=== PATIENT | female | born 1950 | race Caucasian/White ===

== ENCOUNTER 2023-03-19 13:28 | Emergency (ER) | payer OTHER ==
--- OUTSIDE RECORDS SUMMARY | 2023-03-19 13:30 | XMS REPORT | Continuity of Care Document ---
:1950 Author Organization [facility] t Address [address] [place] [id number] Care Team Providers Name Role Phone Unavailable Unavailable Unavailable Problems This patient has no known problems. Allergies, Adverse Reactions, Alerts This patient has no known allergies or adverse reactions. Medications This patient has no known medications. Procedures This patient has no known procedures. Results This patient has no known results.
[2023-03-19] MEDS ORDERED: ACETAMINOPHEN 325 MG TABLET ONE (14:02)
--- NOTE | 2023-03-19 14:45 | RAD REPORT ---
EXAM DESCRIPTION: CT - [id number] - 03/19/2023 2:16 pm CLINICAL HISTORY: head injury;Headache COMPARISON: No comparisons TECHNIQUE: Axial thin cut noncontrast CT images of the head were obtained. Axial thin cut noncontrast CT images of the cervical spine were obtained. Multiplanar reformatted images were generated and reviewed. All CT scans are performed using dose optimization technique as appropriate and may include automated exposure control or mA/KV adjustment according to patient size. FINDINGS: CT HEAD WITHOUT CONTRAST: No acute hemorrhage, hydrocephalus or extra-axial collection is identified.Nonspecific symmetric deyanira ventricular and deep white matter hypodensities, most suggestive of chronic small vessel ischemic mei nges. No areas of brain edema or midline shift. The paranasal sinuses and mastoids are clear.The calvarium is intact. CT CERVICAL SPINE WITHOUT CONTRAST: No fracture or subluxation. Mild degenerative changes at C1-C2, as well as scattered mild degenerativ e changes including mild to moderate disc height loss at C5-6 and C6-7 with uncovertebral joint spurr ing most pronounced at those 2 levels, contributing to mild bilateral neural foraminal narrowing at C 5-6. No prevertebral soft tissues swelling is identified. IMPRESSION: No acute traumatic intracranial or cervical spine findings. Nonspecific deep white matter hypodensities as above, most suggestive of chronic small vessel ischemi c changes. Mild cervical spine degenerative changes as above.
--- NOTE | 2023-03-19 15:52 | EDPHYS ---
Physician Documentation [facility] Name: Nataliya Singh Age: 72 yrs Sex: Female : 1950 Arrival Date: 03/19/2023 Time: 13:28 Bed 9 Private MD: ED Physician Donta Burroughs HPI: 03/19 14:00 This 72 yrs old Female presents to ER via Ambulatory with complaints of Fall Injury, cp Head Injury-Adult. 14:00 The patient or guardian reports injury. The complaints affect the left frontal area, cp left side of the back of head and left temporal area. Context of injury: The problem was sustained at home, resulted from a fall. Onset: The symptoms/episode began/occurred yesterday. Associated signs and symptoms: Pertinent positives: headache, Pertinent negatives: the patient has not experienced a loss of conciousness, neck pain, seizure, vomiting, weakness in extremities, generalized weakness. Historical: - Allergies: 13:48 Sulfa (Sulfonamide Antibiotics); nj1 - PMHx: 13:50 Thrombocytopenia; Hypercholesterolemia; Hypothyroidism; GERD; Anxiety; Depressive nj1 disorder; - PSHx: 13:50 Tonsillectomy; Hysterectomy; section; nj1 - Immunization history:: Client reports receiving the 2nd dose of the Covid vaccine. - Social history:: Smoking status: Patient denies any tobacco usage or history of. ROS: 14:05 Constitutional: Negative for body aches, chills, fever, poor PO intake. cp 14:05 Eyes: Negative for injury, pain, redness, and discharge. cp 14:05 Neck: Negative for pain with movement, pain at rest, stiffness. 14:05 Cardiovascular: Negative for chest pain, palpitations. 14:05 Respiratory: Negative for cough, shortness of breath, wheezing. 14:05 Abdomen/GI: Negative for abdominal pain, nausea and vomiting, constipation. 14:05 Back: Negative for pain at rest, pain with movement. 14:05 Neuro: Positive for headache, Negative for altered mental status, loss of consciousness, syncope, weakness. 14:05 All other systems are negative. Exam: 14:10 Constitutional: The patient appears in no acute distress, alert, awake, cp non-diaphoretic, non-toxic, well developed, well nourished. 14:10 Head/face: Noted is tenderness, that is mild, of the left frontal area, left side of cp the back of head and left temporal area. 14:10 Eyes: Periorbital structures: appear normal, Pupils: equal, round, and reactive to light and accomodation, Extraocular movements: intact throughout, Conjunctiva: normal, no exudate, no injection, Sclera: no appreciated abnormality, Lids and lashes: appear normal, bilaterally. 14:10 ENT: External ear(s): are unremarkable, Ear canal(s): are normal, clear, TM's: dullness, bilaterally, Nose: is normal, Mouth: Lips: moist, Oral mucosa: pink and intact, moist, Posterior pharynx: is normal, airway is patent, no erythema, no exudate. 14:10 Neck: ROM/movement: pain, is not appreciated, limited range of motion, is not appreciated, nuchal rigidity, is not appreciated. 14:10 Chest/axilla: Inspection: normal. 14:10 Cardiovascular: Rate: normal, Rhythm: regular. 14:10 Respiratory: the patient does not display signs of respiratory distress, Respirations: normal, no use of accessory muscles, no retractions, labored breathing, is not present, Breath sounds: are clear throughout, no decreased breath sounds, no stridor, no wheezing. 14:10 Abdomen/GI: Exam negative for discomfort, distension, guarding, Inspection: abdomen appears normal. 14:10 Back: pain, is absent, ROM is normal. 14:10 Neuro: Orientation: to person, place \T\ time. Mentation: is normal, Motor: moves all fours, strength is normal, Sensation: is normal, Gait: is steady, at a normal pace, without difficulty. Vital Signs: 13:45 BP 181 / 91; Pulse 98; Resp 18; Temp 99.3(O); Pulse Ox 99% ; Weight 88 kg; Height 5 ft. nj1 4 in. ; Pain 0/10; 16:16 BP 150 / 86; Pulse 68; Resp 16; Pulse Ox 99% ; hb 13:45 Body Mass Index 33.30 (88.00 kg, 162.56 cm) nj1 13:45 Pain Scale: Adult nj1 Ricky Coma Score: 14:00 Eye Response: spontaneous(4). Motor Response: obeys commands(6). Verbal Response: cp oriented(5). Total: 15. MDM: 13:55 Patient medically screened. cp 15:50 Data reviewed: vital signs, nurses notes, radiologic studies, CT scan. cp 15:50 I considered the following discharge prescriptions or medication management in the emergency department Medications were administered in the Emergency Department. See MAR. Counseling: I had a detailed discussion with the patient and/or guardian regarding: the historical points, exam findings, and any diagnostic results supporting the discharge/admit diagnosis, radiology results, to return to the emergency department if symptoms worsen or persist or if there are any questions or concerns that arise at home. Response to treatment: the patient's symptoms have markedly improved after treatment. 03/19 13:52 Order name: CT Head C Spine; Complete Time: 14:47 cp 03/19 14:47 Interpretation: Reviewed report. cp Administered Medications: 13:56 Drug: Acetaminophen PO 650 mg Route: PO; nj1 Disposition Summary: 03/19/23 15:51 Discharge Ordered Location: Home cp Problem: new cp Symptoms: have improved cp Condition: Stable cp Diagnosis - Contusion of unspecified part of head, initial encounter cp - Elevated blood-pressure reading, without diagnosis of hypertension cp Followup: cp - With: Private Physician - When: 1 - 2 days - Reason: Worsening of condition Discharge Instructions: - Discharge Summary Sheet cp - Facial or Scalp Contusion cp - Head Injury, Adult cp - How to Take Your Blood Pressure, [id number] cp Forms: - Medication Reconciliation Form cp - Thank You Letter cp - Antibiotic Education cp - Prescription Opioid Use cp Signatures: Dispatcher [employer] EDMS Donta Young PA PA cp Jaco, Norma RN RN nj1
--- NOTE | 2023-03-19 15:52 | ER ---
Nurse's Notes [facility] Name: Nataliya Singh Age: 72 yrs Sex: Female : 1950 Arrival Date: 03/19/2023 Time: 13:28 Bed 9 Private MD: Diagnosis: Contusion of unspecified part of head, initial encounter;Elevated blood-pressure reading, without diagnosis of hypertension Presentation: 03/19 13:45 Chief complaint: Patient states: Slipped and fell backwards yesterday hitting back of [facility] the head. Denies LOC. Was convinced by neighbors to come get checked. Coronavirus screen: Vaccine status: Patient reports receiving the 2nd dose of the covid vaccine. Ebola Screen: Patient denies travel to an Ebola-affected area in the 21 days before illness onset. Initial Sepsis Screen: Does the patient meet any 2 criteria? No. Patient's initial sepsis screen is negative. Does the patient have a suspected source of infection? No. Patient's initial sepsis screen is negative. Risk Assessment: Do you want to hurt yourself or someone else? Patient reports no desire to harm self or others. Onset of symptoms was March 18, 2023. 13:45 Method Of Arrival: Ambulatory [facility] 13:45 Acuity: STACY 3 [facility] Historical: - Allergies: 13:48 Sulfa (Sulfonamide Antibiotics); nj1 - PMHx: 13:50 Thrombocytopenia; Hypercholesterolemia; Hypothyroidism; GERD; Anxiety; Depressive nj1 disorder; - PSHx: 13:50 Tonsillectomy; Hysterectomy; section; nj1 - Immunization history:: Client reports receiving the 2nd dose of the Covid vaccine. - Social history:: Smoking status: Patient denies any tobacco usage or history of. Screenin:26 [facility] ED Fall Risk Assessment (Adult) Score/Fall Risk Level 0 - 2 = Low Risk hb Oriented to surroundings, Maintained a safe environment. Abuse screen: Denies threats or abuse. Denies injuries from another. Nutritional screening: No deficits noted. Tuberculosis screening: No symptoms or risk factors identified. Assessment: 15:26 General: Appears in no apparent distress. Behavior is calm, cooperative. Pain: Denies hb pain. Neuro: Level of Consciousness is awake, alert, obeys commands, Oriented to person, place, time, situation. Cardiovascular: Patient's skin is warm and dry. Respiratory: Respiratory effort is even, unlabored, Respiratory pattern is regular, symmetrical. GI: No signs and/or symptoms were reported involving the gastrointestinal system. : No signs and/or symptoms were reported regarding the genitourinary system. EENT: No signs and/or symptoms were reported regarding the EENT system. Derm: Skin is pink, warm \T\ dry. Musculoskeletal: No signs and/or symptoms reported regarding the musculoskeletal system. Vital Signs: 13:45 BP 181 / 91; Pulse 98; Resp 18; Temp 99.3(O); Pulse Ox 99% ; Weight 88 kg; Height 5 ft. nj1 4 in. ; Pain 0/10; 16:16 BP 150 / 86; Pulse 68; Resp 16; Pulse Ox 99% ; hb 13:45 Body Mass Index 33.30 (88.00 kg, 162.56 cm) nj1 13:45 Pain Scale: Adult nj1 Ricky Coma Score: 14:00 Eye Response: spontaneous(4). Motor Response: obeys commands(6). Verbal Response: cp oriented(5). Total: 15. ED Course: 13:32 Patient arrived in ED. ts1 13:34 Donta Young PA is PHCP. cp 13:34 Donta Burroughs MD is Attending Physician. cp 13:48 Triage completed. nj1 13:53 Arm band placed on right wrist. nj1 14:18 CT Head C Spine In Process Unspecified. EDMS 15:26 Sarita James RN is Primary Nurse. hb 15:26 Patient has correct armband on for positive identification. hb 15:26 No provider procedures requiring assistance completed. Patient did not have IV access hb during this emergency room visit. Administered Medications: 13:56 Drug: Acetaminophen PO 650 mg Route: PO; nj1 Medication: 15:26 VIS not applicable for this client. hb Outcome: 15:51 Discharge ordered by MD. cp 16:10 Discharged to home ambulatory. hb 16:10 Condition: stable 16:10 Discharge instructions given to patient, Instructed on discharge instructions, follow up and referral plans. medication usage, Demonstrated understanding of instructions, follow-up care, medications. 16:17 Patient left the ED. hb Signatures: Dispatcher [employer] EDMS Donta Young PA PA Sarita Archer RN RN Carlyn Ventura RN RN nj1 Aura Ruiz PAS PAS ts1 Corrections: (The following items were deleted from the chart) 13:48 13:45 Acuity: STACY 4 nj1 nj1
[2023-03-19 16:34] VITALS: TEMP 99.3; O2SAT 99
[2023-03-19 16:36] VITALS: BP 150/86
== END 2023-03-19 16:17 | disposition home or self-care (01) ==
LOC: ER 13:28
DX: S00.83XA Contusion of other part of head, initial encounter (principal); R03.0 Elevated blood-pressure reading, without diagnosis of hypertension; Z88.2 Allergy status to sulfonamides
CPT/HCPCS: 70450; 72125; 99283